=== PATIENT | female | born 1965 | race Caucasian/White ===

== ENCOUNTER 2020-06-27 23:57 | Emergency (ER) | payer SELFPAY ==
[2020-06-28 00:27] VITALS: BP 127/74; PULSE 91; RESP 16; TEMP 36.7; O2SAT 95; BMI 36.9
--- NOTE | 2020-06-28 00:35 | W.ED.DENTAL ---
HPI - Dental/Oral General: Chief complaint: Dental/Oral Stated complaint: BROKEN TOOTH Time Seen by Provider: 06/28/20 00:32 History of Present Illness: HPI Narrative: Patient is a 55-year-old female comes in ED with dental pain. Patient says that she has left lower dental pain due to a broken tooth. Patient says one of her teeth cracked couple weeks ago due to a retainer she wears. She says it started hurting approximately 2 days ago. She rates the pain a 10 out of 10. Dental pain is located at around tooth #21. Denies any fever, chills, nausea/vomiting or any facial swelling or trouble breathing. Patient says she is called multiple dentists and finally has an appointment set up in August. Dentist told patient to go to the ED and be put on antibiotics. Associated symptoms: Denies fever(s) or odynophagia Review of Systems Const: Denies: fever(s), chills or fatigue Eyes: Denies: change in vision or eye discomfort ENMT: Reports: dental pain; Denies: throat pain, odynophagia, nasal discharge or nasal congestion Card: Denies: chest pain, palpitations, edema, swelling of feet/ankles, dyspnea on exertion or orthopnea Resp: Denies: dyspnea, productive cough or non-productive cough GI: Denies: abdominal pain, nausea, vomiting, diarrhea, constipation or hematochezia : Denies: flank pain, dysuria or hematuria Musc: Denies: neck pain, back pain or extremity swelling Skin/Breast: Denies: rash or new lesions Neuro: Denies: headache(s), numbness in extremities or weakness in extremities [facility] ED PFSH: Medical History Anxiety disorder, unspecified Hypothyroid Major depressive disorder, recurrent Over weight Social History Smoking and tobacco status: current every day smoker cigarettes Years cigarettes smoked: 30 Quit status (tobacco): has tried quititng Number of times tried to quit tobacco: 1 Second hand smoke exposure: Yes Current gender identity: Female Physical Exam Const: COMMON NORMALS: no acute distress, patient oriented x3, healthy appearing and alert GENERAL APPEARANCE: cooperative and comfortable HENMT: COMMON NORMALS: normocephalic HEAD & SCALP: normocephalic MOUTH: Normal oral and palatal mucosa present TEETH & GINGIVA: Yes caries and Yes poor dentition THROAT: posterior oropharynx normal and uvula midline Neck/C-Spine: COMMON NORMALS: supple GENERAL: Yes normal visual inspection Resp: COMMON NORMALS: normal respiratory effort, No retractions, No use of accessory muscles and clear to auscultation bilaterally AUSCULTATION: clear to auscultation bilaterally Cardio: COMMON NORMALS: regular rate, regular rhythm, S1 normal heart sound present, S2 normal heart sound present, No gallops present (Cardio), No clicks present (Cardio), No murmurs present (Cardio) and Peripheral pulses 2+ throughout RATE: regular rate RHYTHM: regular rhythm HEART SOUNDS: S1 normal heart sound present and S2 normal heart sound present PERIPHERAL PULSES: Peripheral pulses 2+ throughout GI: COMMON NORMALS: Normal to inspection, nondistended, normoactive bowel sounds present, Soft to palpation, non-tender and no masses PALPATION: Yes Soft to palpation : COMMON NORMALS: Yes no CVA tenderness BLADDER/KIDNEY EXAM: Yes no CVA tenderness Back/Pelvis: COMMON NORMALS: no CVA tenderness Extremity: COMMON NORMALS: normal to inspection Neuro: COMMON NORMALS: patient oriented x3 SENSORIUM/ORIENTATION: Yes alert Skin: GENERAL SKIN EXAM: dry skin Course Vital Signs: Vital signs: Vital Signs Temperature 98.1 F 06/28/20 00:27 Pulse Rate 91 06/28/20 00:27 Respiratory Rate 16 06/28/20 00:27 Blood Pressure 127/74 06/28/20 00:27 Pulse Oximetry 95 06/28/20 00:27 MDM - Dental/Oral MDM Narrative: Medical decision making narrative: Patient is a 55-year-old female comes to the ED with dental pain. Denies any fever, chills, trouble breathing or nausea or vomiting. Patient has a appointment with her dentist in August and she was told to come to the ED to get put on antibiotic. Exam shows a patient poor dentition and multiple dental caries seen. Patient was diagnosed with dental pain and discharged home with a prescription for clindamycin and ibuprofen 800 mg tablets for pain. Return to ED precautions given. Patient understood and agreed with plan. Discharge Plan Discharge Patient Disposition: Home Clinical Impression: Pain, dental Condition: Stable Prescriptions: New clindamycin HCl 150 mg capsule 300 mg PO QID 7 Days Qty: 56 RF: 0 ibuprofen 800 mg tablet 800 mg PO Q8H PRN (Reason: pain) Qty: 30 RF: 0 No Action levothyroxine 150 mcg capsule 150 mcg PO DAILY RF: 0 biotin 1 mg capsule 1 mg PO DAILY RF: 0 duloxetine 30 mg capsule,delayed release(DR/EC) 30 mg PO DAILY Qty: 90 RF: 0 duloxetine [Cymbalta] 60 mg capsule,delayed release(DR/EC) 60 mg PO QAM Qty: 90 RF: 0 prazosin 1 mg capsule 1 mg PO .qhs 30 Days Qty: 90 RF: 0 buspirone 15 mg tablet 15 mg PO BID Qty: 135 RF: 0 lisinopril 5 mg tablet 5 mg PO DAILY RF: 0 oxybutynin chloride 5 mg tablet 5 mg PO BID RF: 0 metformin 500 mg tablet 500 mg PO BID RF: 0 Discharge Orders: Discharge ED (Routine); Ordered 06/28/20 Ordered By: Denis Alba Referrals: Kati Walker FNP [Primary Care Provider] - Discharge Diet: Regular Discharge Activity: Resume usual activity Patient Instructions: Dental Caries (ED), Toothache (ED) Activity Restrictions/Additional Instructions: Follow-up with dentist at your next scheduled appointment to address dental pain. Take medications as prescribed. Return to the ER or your medical provider if condition worsens. Please read and understand discharge instructions. If any questions, please ask. Coding Level of Care Code ED Inventory Manager for Anette Fwrosalia Exam Detailed
[2020-06-28] MEDS: HYDROcodone-acetaminophen 7.5-325 mg Tablet 1 TAB PO (00:56)
[2020-06-28] MEDS: clindamycin 150 mg Capsule 300 MG PO (00:59)
[2020-06-28 01:03] VITALS: RESP 16; TEMP 36.7; O2SAT 95
== END 2020-06-28 01:04 | disposition home or self-care (01) ==
PROVIDERS: Emergency Provider Physician Assistant; PCP Nurse Practitioner Family
DX: K08.89 Other specified disorders of teeth and supporting structures (principal); F17.210 Nicotine dependence, cigarettes, uncomplicated
CPT/HCPCS: 99283

== ENCOUNTER 2020-08-07 16:33 | Outpatient (CLI) | payer SELFPAY ==
--- NOTE | 2020-08-07 16:41 | XR_ITS ---
WS: [id number] Right knee, 4 views, 08/07/2020 Clinical Data: RT KNEE PAIN Comparison: None. Findings: No fractures or dislocations are seen. There is medial joint compartment narrowing. Joint cartilage c alcification is present in the lateral joint space. There are osteophytes of the medial femoral condy le and medial and lateral tibial plateaus. There are osteophytes of the posterior right patella.. The patella is intact. The soft tissues are unremarkable. XR/XR knee RT 4V [id number] Impression: Severe osteoarthritis of the right knee. Kellgren-Toby Classification: grade 4 (severe): large osteophytes, marked n arrowing of joint space, severe sclerosis and definite deformity of bone ends
== END 2020-08-07 16:34 | disposition home or self-care (01) ==
PROVIDERS: PCP Nurse Practitioner Family; Visit Provider Nurse Practitioner Family
DX: M25.561 Pain in right knee (principal); M17.11 Unilateral primary osteoarthritis, right knee; M25.761 Osteophyte, right knee
CPT/HCPCS: 73564

== ENCOUNTER → 2020-08-27 14:56 | Outpatient (BNVA) | payer SELFPAY | PROVIDERS: PCP Nurse Practitioner Family; Referring Provider Nurse Practitioner Family; Visit Provider Specialist | DX: G56.03 Carpal tunnel syndrome, bilateral upper limbs (principal); F17.210 Nicotine dependence, cigarettes, uncomplicated | CPT/HCPCS: 95910 ==

== ENCOUNTER → 2020-10-08 11:10 | Day surgery (SDC) | payer SELFPAY | PROVIDERS: PCP Nurse Practitioner Family; Visit Provider Orthopaedic Surgery | DX: Z01.818 Encounter for other preprocedural examination (principal) | CPT/HCPCS: 93005 ==

== ENCOUNTER 2020-10-14 14:06 | Observation (INO) | payer SELFPAY ==
[2020-10-08 10:51] VITALS: BMI 36.1
--- NOTE | 2020-10-08 11:10 | ECG_ITS ---
[facility] Test Date: 2020-10-08 Pat Name: Thelma Cleary Department: Room: Gender: Female [employer] Crafts[employer]: jd KAYB: 1965 Requested By: Brooklyn Oleary Order Number: [id number] Reading MD: JAEL FLORES Measurements Intervals [place] Rate: 70 P: 45 LA: 187 QRS: 26 QRSD: 97 T: 65 QT: 431 QTc: 467 Interpretive Statements SINUS RHYTHM No previous ECG available for comparison Electronically Signed On 10-08-2020 22:37:16 CDT by JAEL FLORES [id number]
[2020-10-14] VITALS (17 sets, daily range): BP systolic 90–125; BP diastolic 49–81; PULSE 71–89; RESP 16–18; TEMP 36.1–36.9; O2SAT 92–99; BMI 35.9
--- NOTE | 2020-10-14 10:36 | P.ANESASSM_ITS ---
Pre-Anesthetic Assessment Pre-Anesthetic Assessment: Height/Weight: Height 1.75 m Weight 111.13 kg Temp Pulse BP Pulse Ox 98.4 F 80 122/81 97 10/14/20 09:15 10/14/20 09:15 10/14/20 09:15 10/14/20 09:15 Proposed Procedure: Operation Date: 10/14/20 10:25 Proposed Procedures p right Total Knee Arthroplasty 80167 m17.11(Right) - Ron Aguilar MD Was Beta Mohsen taken within 24 hours: N/A Was Clonidine taken within 24 hours: N/A Last intake: Intake Last Liquid Date 10/14/20 Last Liquid Time 08:00 Last Solid Date 10/13/20 Last Solid Time 19:00 Social: Social History: Tobacco and No alcohol Exam: Pre-Anes Outpt Exam: alert, oriented x 3 and regular rate & rhythm Airway: Submandibular: WNL Cervical ROM: WNL MP: 2 Dentition: False Pulmonary: Pulmonary: COPD CV/HEM: CV/HEM: HTN Metabolic: Metabolic: DM, Hyperlipidemia, Morbid obesity and Thyroid Musc/skel: Musc/skel: OA/DJD Neuropsych: Neuropsych: Anxiety and Depression Anesthetic Plan: ASA status: 3 Anesthesia: Regional (specify below) (SAB with adductor blk) Risk of > 500 ml blood loss (7ml/kg in children): No PFSH Anesthesia PFSH: Medical History Anxiety disorder, unspecified Hypothyroid Major depressive disorder, recurrent Over weight Social History Smoking and tobacco status: current every day smoker cigarettes Years cigarett es smoked: 30 Quit status (tobacco): has tried quititng Number of times tried to quit tobacco: 1 Second hand smoke exposure: Yes Current gender identity: Female Data Anesthesia Cardiac Studies: No Data to Display
[2020-10-14 11:03] LABS: Glucose Point of Care 116 mg/dL (70-110)
--- NOTE | 2020-10-14 11:13 | P.HP_ITS ---
Same Day Surgery H&P Indication for Procedure/HPI DATE OF PROCEDURE: October 14, 2020 CHIEF COMPLAINT/INDICATIONFOR SURGICAL PROCEDURE: Right knee pain here for elective right total knee arthroplasty unresponsive to conservative measures secondary to osteoarthritis. PREOP DIAGNOSIS: Osteoarthritis right knee PLANNED PROCEDRUE: Operation Date: 10/14/20 10:25 Proposed Procedures p right Total Knee Arthroplasty 11769 m17.11(Right) - Ron Aguilar MD Medications/Allergies* Home Medications Medication Instructions Recorded Confirmed Type lisinopril 5 mg tablet 5 mg PO DAILY 11/21/19 10/14/20 History oxybutynin chloride 5 mg tablet 5 mg PO BID tab 11/21/19 10/14/20 History biotin 1 mg capsule 1 mg PO DAILY 01/01/20 10/14/20 History gabapentin 100 mg capsule 100 mg PO TID 08/08/20 10/14/20 History ibuprofen 800 mg tablet 800 mg PO Q8H PRN tab 08/08/20 09/23/20 History levothyroxine 125 mcg tablet 125 mcg PO DAILY 08/08/20 10/14/20 History meloxicam 15 mg tablet 15 mg PO DAILY 08/08/20 10/14/20 History metformin 500 mg tablet 1,000 mg PO BID tab 08/08/20 10/14/20 History simvastatin 40 mg tablet 40 mg PO .HS tab 08/08/20 10/14/20 History Allergies/Adverse Reactions Allergy/AdvReac Type Severity Reaction Status Date / Time Penicillins Allergy Severe swells Verified 09/23/20 09:19 morphine Allergy ALGY-Hives Verified 10/14/20 09:19 Pertinent History/Comorbid Conditions* Medical History (Updated 08/27/20 @ 17:13 by Bhavya Ledesma MD) Anxiety disorder, unspecified Hypothyroid Major depressive disorder, recurrent Over weight Social History Smoking and tobacco status: current every day smoker cigarettes Years cigarettes smoked: 30 Quit status (tobacco): has tried quititng Number of times tried to quit tobacco: 1 Second hand smoke exposure: Yes Current gender identity: Female Pertinent Exam Findings alert, oriented x 3, clear to auscultation bilaterally, regular rate & rhythm and operative site marked Recommendations Surgery/Procedure today Coding Level of Care Code Acute Medical Registrar for Anette Raygoza
[2020-10-14] MEDS: oxyCODONE 20 mg ER (12 HR) Tablet PO (11:45)
[2020-10-14] MEDS: CELEcoxib 200 mg Capsule PO ×3 (11:46→22:20)
[2020-10-14] MEDS: acetaminophen 500 mg Tablet 1000 MG PO ×2 (11:46→19:49)
[2020-10-14] MEDS: sodium chloride 0.9% 1,000 ML 30 ML IV (11:46)
[2020-10-14] MEDS: ketorolac 30 mg/mL INJ IM (12:50)
[2020-10-14] MEDS: EPINEPHrine 1 mg/mL INJ XX (12:51)
[2020-10-14] MEDS: tranexamic acid 1,000 mg/10mL SDV 1000 MG IRRIGATION (12:52)
--- NOTE | 2020-10-14 12:53 | ANES.PROC ---
Anesthesia Procedures Procedure/Date: 10/14/20 Nerve Block ^: Nerve Block 1: Main Anesthesia: spinal anesthesia block Time Out Performed: Yes Consent: requested by attending/covering physician, from patient, risks and benefits reviewed and patient agrees to proceed Nerve block location: adductor canal (right) Anesthesia monitors applied: pulse oximetry, EKG, BP cuff and oxygen Anesthetic Used: ropivicaine 0.5% Amount of anesthesia used (mL): 20 Nerve Stimulator Used?: No Interscalene/Femoral BLK: 4 stimuplex 21 g needle used for position and inplane approach and visualize local anesthetic spread Injection: neg aspiration of heme Patient Tolerated Procedure: well Complications: none
--- NOTE | 2020-10-14 14:11 | XRR_ITS ---
PROCEDURE INFORMATION: Exam: XR Right Knee Exam date and time: 10/14/2020 2:11 PM Age: 55 years old Clinical indication: Condition or disease; Joint replacement status; Knee; Right; Prior surgery; Surgery date: Post-operative (0-2 days); Surgery type: Tka; Patient HX: Post op; Additional info: Right total knee arthroplasty TECHNIQUE: Imaging protocol: XR Right knee. Views: 1 or 2 views. COMPARISON: CR XR knee RT 4V [id number] 08/07/2020 4:50 PM FINDINGS: Postoperative changes of recent right knee arthroplasty are noted, which appear in good alignment. Soft tissue swelling and subcutaneous air are present in the anterior knee. XR/XR knee RT 1-2V [id number] IMPRESSION: Recent right knee arthroplasty.
--- NOTE | 2020-10-14 14:17 | PM.OP ---
Operative Report Date of procedure: October 14, 2020 Pre-op Diagnosis: Osteoarthritis right knee Post-op diagnosis: same Post-op Findings: Tricompartmental osteoarthritis right knee Implants: [place] total knee arthroplasty components were used includin) Size 5 triathalon cruciate retaining femoral component 2) Size 4 Tritanium tibial component 3) 29 mm /9 mm thickness Tritanium asymetric patella 4) Size 4/9 mm thickness CR tibial bearing insert Pathology: none sent Surgeon: Ron Aguilar Anesthesia: Nerve Block (Spinal, adductor canal block) Estimated blood loss (mL): 100 Findings: The patient had tricompartmental osteoarthritis. With varus alignment and large posterior osteophytes. Condition: stable Disposition: PACU Procedure: The patient was taken to the operating room. Patient was given 1 g of tranexamic acid . The above anesthesia provided by the anesthesia service. A timeout was performed. The patient was prepped and draped in the usual fashion with the lower extremity exposed. A anterior incision was made, midline, from a point proximal to the patella to the distal tibial tubercle. The knee was entered through a medial parapatellar approach. The patella could be displaced laterally and the knee flexed. The patellar fat pad was resected to provide better visibility. Retractors were placed medially and laterally adjacent to the tibial plateau. The femoral canal was drilled in line with the longitudinal axis of the femur. Intramedullary femoral guide for used to make a distal femoral cut in 5 degrees of valgus, resecting 8 mm from the more prominent condyle. Next the extra medullary tibial guide was placed in alignment with the longitudinal axis of the tibia. The cutting guides were set to remove just over 9 mm from the high tibial plateau. The proximal tibia was then cut. The femoral measuring guide was then placed over the distal femur. Rotation was verified checking the relationship of the guide to the condyle and the trochlear groove. The femur was measured and cut for the desired femoral component. The desired tibial baseplate was then chosen. A trial reduction with the femur tibial baseplate and polyethylene was done, assuring that the knee was stable throughout full motion. Ligament balancing a release of the deep medial collateral ligament and removal of medial and posterior osteophytes. Osteotome was used to remove posterior osteophytes from the medial condyles and a rongeur to remove medial osteophytes from the tibia.The tibia was prepared for the tibial baseplate. Patellar thickness was then measured. The patella was cut removing articular cartilage and prepared for appropriate size patellar button. surfaces were cleaned with a gentamicin/tranexamic acid solution. The femur tibia and patella were then press-fit into place. The posterior capsule and collateral ligaments were then injected with a solution of 100 mL of 0.2% ropivacaine, 1 mL of a 1:1000 epinephrine solution, and 30 mg of Toradol. Final polyethylene component was then snapped into place into the tibia. The tourniquet was deflated. The tranxanemic acid was left contact with the knee for 5 minutes before the knee was irrigated with saline. The extensor retinaculum was closed with a running 1 Stratafix.. The subcutaneous tissues were closed with 2-0 Vicryl and the skin was closed with a running 3-0 Stratafix. The wound was covered with a Dermabond Prinio dressing. It was covered with 4xrs and a compressive Tubigauae was applied. The patient was taken to recovery room in stable condition.
--- NOTE | 2020-10-14 14:32 | ANE.PACU2 ---
Inpatient post-anesthesia follow up: Airway intact: Yes Vital signs: Temperature 97 F Pulse Rate 80 Respiratory Rate 17 Blood Pressure 103/67 Pulse Oximetry 93 Oxygen Delivery Me thod Room Air Oxygen Flow Rate Fraction of Inspir ed Oxygen Hydration adequate: Yes Nausea and vomiting: No Pain level: 2 Mental status: Baseline
[2020-10-14 17:12] LABS: Glucose Point of Care 171 mg/dL (70-110)
[2020-10-14] MEDS: metformin 500 mg Tablet 1000 MG PO (17:41)
[2020-10-14] MEDS: gabapentin 300 mg Capsule PO (17:41)
[2020-10-14] MEDS: sennosides-docusate Tablet 2 TAB PO (17:41)
[2020-10-14] MEDS: oxybutynin 5 mg Tablet PO (17:42)
[2020-10-14] MEDS: sodium chloride 0.9% 1,000 ML 100 ML IV (17:50)
[2020-10-14] MEDS: oxyCODONE 5 mg IR Tab/Cap PO (18:38)
[2020-10-14] MEDS: atorvastatin 40 mg Tablet 20 MG PO (20:01)
[2020-10-14] MEDS: prazosin 1 mg Capsule 2 MG PO (20:06)
[2020-10-14] MEDS: acetaminophen 1,000 MG/100 ML PIGGYBACK 400 MG IV (21:27)
[2020-10-14 21:43] LABS: Glucose Point of Care 161 mg/dL (70-110)
[2020-10-15 00:06] VITALS: BP 104/67; PULSE 75; RESP 16; TEMP 36.7; O2SAT 96
--- NOTE | 2020-10-15 00:11 | PC.NURSE ---
Addendum entered by Eusebia Stephenson RN 10/15/20 00:11: Entered in error Original Note: Shift Note Frequent safety and comfort rounds continue. Orders and/or nursing care completed as indicated. Patient monitored for response to intervention and treatment(s). Education provided includes[]. Patient and/or access service representative [ResponseToTeaching]. Will continue to monitor.
[2020-10-15 00:25] VITALS: RESP 18
[2020-10-15] MEDS: oxyCODONE 5 mg IR Tab/Cap PO ×2 (00:25→05:20)
[2020-10-15 03:37] LABS: Hemoglobin 11.4 g/dL (11.5-15.3)
[2020-10-15 04:09] VITALS: BP 98/65; PULSE 94; RESP 16; TEMP 36.7; O2SAT 95
[2020-10-15 05:20] VITALS: RESP 18
[2020-10-15] MEDS: duloxetine 60 mg Capsule PO (06:18)
[2020-10-15 06:34] LABS: Glucose Point of Care 121 mg/dL (70-110)
[2020-10-15 07:46] VITALS: BP 121/72; PULSE 80; RESP 18; TEMP 36.8; O2SAT 95
[2020-10-15] MEDS: sennosides-docusate Tablet 2 TAB PO (08:11)
[2020-10-15] MEDS: metformin 500 mg Tablet 1000 MG PO (08:11)
[2020-10-15] MEDS: aspirin 325 mg EC Tablet PO (08:11)
[2020-10-15] MEDS: levothyroxine 125 mcg Tablet PO (08:11)
[2020-10-15] MEDS: oxybutynin 5 mg Tablet PO (08:11)
[2020-10-15] MEDS: lisinopril 5 mg Tablet PO (08:11)
[2020-10-15] MEDS: citalopram 20 mg Tablet PO (08:11)
[2020-10-15] MEDS: gabapentin 300 mg Capsule PO (08:11)
--- NOTE | 2020-10-15 08:14 | PM.DCS ---
Discharge Providers Date of Admission: 10/14/20 14:06 Date of Discharge: October 15, 2020 Attending Provider at Admission: Ron Aguilar MD Attending Provider at Discharge: Ron Aguilar MD Primary Care Provider: Kati Walker Diagnoses at Discharge Discharge Diagnosis (1) Status post right knee replacement: Status: Acute (2) Osteoarthritis of right knee: Status: Acute Reason for Visit Reason for Visit: right total knee arthroplasty 97187 Hospital Course Hospital Course The patient tolerated surgery well. They remained hemodynamically stable. They was begun on aspirin and sequential compression devices for DVT prophylaxis. The patient was mobilized with therapy beginning the day of surgery and by the first postoperative day independent with the walker. As the pain was adequately controlled and they were fully mobile they were discharged home. Physical Exam Narrative: EXAM NARRATIVE: On the day of discharge his knee incision was clean. They had no drainage. There is minimal swelling in the thigh and knee and the calf. No distal neurovascular deficits were noted Discharge Data Data Completed and Pending: Completed Studies During Hospitalization Category Date Time Status XR knee RT 1-2V 7 3560 Routine Exams 10/14/20 14:11 Completed Labs from last 24 hours 10/15/20 10/15/20 10/14/20 06:31 03:23 21:28 Hgb 11.4 L POC Glucose 121 H 161 H 10/14/20 10/14/20 16:58 10:56 Hgb POC Glucose 171 H 116 H Vitals: Last Vital Signs Temp 98.3 F 10/15/20 07:46 Pulse 80 10/15/20 07:46 Resp 18 10/15/20 07:46 BP 121/72 10/15/20 07:46 Pulse Ox 95 10/15/20 07:46 Discharge Plan Discharge Patient Disposition: Home Condition: Stable Prescriptions: New hydrocodone-acetaminophen 7.5-325 mg tablet 1 tab PO Q6H PRN (Reason: pain) 7 Days Qty: 30 RF: 0 aspirin 325 mg Tablet,Delayed Release (Dr/Ec) 325 mg PO DAILY 30 Days Qty: 30 RF: 0 gabapentin 300 mg Capsule 300 mg PO BID 7 Days Qty: 14 RF: 0 acetaminophen 500 mg Tablet 1,000 mg PO Q8H 14 Days Qty: 84 RF: 0 celecoxib 200 mg Capsule 200 mg PO Q12H 14 Days Qty: 28 RF: 0 Continued biotin 1 mg capsule 1 mg PO DAILY RF: 0 mupirocin 2 % ointment 1 applic topical BID Qty: 22 RF: 0 tramadol 50 mg tablet 50 mg PO Q6H PRN (Reason: pain) Qty: 30 RF: 0 lisinopril 5 mg tablet 5 mg PO DAILY RF: 0 oxybutynin chloride 5 mg tablet 5 mg PO BID RF: 0 metformin 500 mg tablet 1,000 mg PO BID RF: 0 prazosin 2 mg capsule 2 mg PO .q hs Qty: 30 RF: 1 duloxetine [Cymbalta] 60 mg capsule,delayed release(DR/EC) 60 mg PO QAM Qty: 90 RF: 0 citalopram 20 mg tablet 20 mg PO DAILY Qty: 30 RF: 1 ibuprofen 800 mg tablet 800 mg PO Q8H PRN (Reason: pain) RF: 0 levothyroxine 125 mcg tablet 125 mcg PO DAILY RF: 0 gabapentin 100 mg capsule 100 mg PO TID RF: 0 simvastatin 40 mg tablet 40 mg PO .HS RF: 0 Discontinued meloxicam 15 mg tablet 15 mg PO DAILY RF: 0 Discharge Orders: Discharge Order (Routine); Ordered 10/15/20 Ordered By: Ron Aguilar Other Ambulatory Orders: DME: [facility] (Order) Location: None Selected Ordered By: Ron Aguilar Referrals: Ron Aguilar MD [Physician] - 1-3 days (Wednesday) Discharge Diet: Advance as tolerated Discharge Activity: Limit activity as instructed Patient Instructions: Opioid Safety Activity Restrictions/Additional Instructions: Okay to shower Keep Tubigauze sleeve in place for swelling. Okay to remove for hygiene. Apply FirstIce up to 20 min/hr for pain and swelling Take Celebrex twice a day for the next 15 days for pain , discontinue other anti-inflammatories Take Neurontin twice a day for 7 days then decrease to previous dosage Take Tylenol 500mg (1-2 tabs) as needed 3 times a day for mild pain take hydrocodone for breakthrough pain. If taking hydrocodone hold Tylenol Exercises per physical therapy. May weight-bear as tolerated on total knee arthroplasty Discharge Attestations Time Spent in Discharge Care*: other Quality Metrics Clinical Quality Measures During this hospital stay, did patient experience: None Coding Level of Care Code Acute g FW VT note Diagnoses Status post right knee replacement Z96.651 Osteoarthritis of right knee M17.11
--- NOTE | 2020-10-15 08:18 | PC.NURSE ---
Shift Note Frequent safety and comfort rounds continue. Orders and/or nursing care completed as indicated. Patient monitored for response to intervention and treatment(s). Education provided includesoxygen safety and IV pump and medication. Patient and/or mechanical service representative understood teaching. Will continue to monitor.
[2020-10-15] MEDS: CELEcoxib 200 mg Capsule PO (10:37)
[2020-10-15] MEDS: acetaminophen 500 mg Tablet 1000 MG PO (10:37)
--- NOTE | 2020-10-15 11:05 | PC.NURSE ---
Faxed [facility] to [facility]
--- NOTE | 2020-10-15 11:05 | PC.NURSE ---
Patient given discharge instructions and verbalized understanding of instructions. patient taken to private vehicle via wheelchair by staff.
[2020-10-15 11:06] VITALS: BP 121/72; PULSE 80; RESP 18; TEMP 36.8; O2SAT 95
--- NOTE | 2020-10-15 13:26 | PC.OT ---
PATIENT DISCHARGED BEFORE EVALUATION COULD BE COMPLETED.
--- NOTE | 2020-10-18 10:43 | PC.SOCIAL ---
hospital follow up call made to patient. patient is seeing Dr. Aguilar today. Home health has been to see patient twice this week and will see patient tid starting next week. patient has been taking hydrocodone for pain with improved pain, along with neurotin, tylenol, celebrex. patient using first ice.
--- NOTE | 2020-10-21 16:38 | PC.RESP ---
SMOKING CESSATION INFORMATION SENT TO PATIENT.
== END 2020-10-15 11:07 | disposition home or self-care (01) ==
LOC: MEDSURG 14:06
PROVIDERS: Admitting Provider Orthopaedic Surgery; PCP Nurse Practitioner Family; Visit Provider Orthopaedic Surgery
PROC: (CPT 27447; principal; 2020-10-14 10:25)
DX: M17.11 Unilateral primary osteoarthritis, right knee (principal); J44.9 Chronic obstructive pulmonary disease, unspecified; I10 Essential (primary) hypertension; E11.9 Type 2 diabetes mellitus without complications; E78.5 Hyperlipidemia, unspecified; E66.01 Morbid (severe) obesity due to excess calories; Z68.35 Body mass index [BMI] 35.0-35.9, adult; F41.9 Anxiety disorder, unspecified; F33.9 Major depressive disorder, recurrent, unspecified; F17.210 Nicotine dependence, cigarettes, uncomplicated
CPT/HCPCS: 27447; 36415; 36416; 64447; 73560; 76942; 82962; 85018; 87635; 96372; 97110; 97116; 97161; C1776; G0378; J0171; J0690; J1580; J1815; J1885; J2704; J2795; J7030

== ENCOUNTER → 2020-11-12 11:25 | Outpatient (BNVA) | payer SELFPAY | PROVIDERS: PCP Nurse Practitioner Family; Visit Provider Orthopaedic Surgery | DX: Z96.651 Presence of right artificial knee joint (principal) | CPT/HCPCS: 73560; 73565 ==

== ENCOUNTER 2020-11-18 13:32 | Outpatient (RCR) | payer SELFPAY | END 2020-12-05 23:59 | disposition home or self-care (01) | LOC: SPT 13:32 | PROVIDERS: PCP Nurse Practitioner Family; Referring Provider Orthopaedic Surgery; Visit Provider Orthopaedic Surgery | DX: Z47.1 Aftercare following joint replacement surgery (principal); Z96.651 Presence of right artificial knee joint | CPT/HCPCS: 97110; 97161 ==

== ENCOUNTER 2021-07-17 10:36 | Day surgery (SDC) | payer SELFPAY ==
[2021-07-16 12:42] VITALS: BMI 35.9
[2021-07-17] VITALS (7 sets, daily range): BP systolic 113–159; BP diastolic 73–91; PULSE 65–83; RESP 17–18; TEMP 36.1–36.6; O2SAT 94–100
--- NOTE | 2021-07-17 10:56 | ANES.PREANE2 ---
Pre-Anesthetic Assessment Height/Weight: Height 1.75 m Weight 110.223 kg Temp Pulse Resp BP Pulse Ox 97.8 F 77 17 113/73 96 07/17/21 10:53 07/17/21 10:53 07/17/21 10:53 07/17/21 10:53 07/17/21 10:53 Preop Diagnosis: BilateralCarpal tunnel syndrome Operation Date: 07/17/21 11:55 Proposed Procedures p Bilateral Carpal Tunnel Release 95853/G56.03(Bilateral) - Ron Aguilar MD Familial anesthetic complications: None Was Beta Mohsen taken within 24 hours: N/A Was Clonidine taken within 24 hours: N/A Social Tobacco and No tobacco Exam alert, oriented x 3 and regular rate & rhythm b/l diminished breath sounds Airway Submandibular: within normal limits Cervical ROM: within normal limits Mallampati: Class I Dentition: false History/ROS No significant complaints Pulmonary None reported CV/HEM Hypertension METS > 4 None reported Hepatic None reported GI None reported Metabolic Thyroid Disease (hypothyroid ) [facility] [place] reported Neuropsych Anxiety, Depression and Neuropathy (Carpal tunnel ) PTSD Hx of concussion Anesthetic Plan ASA status: 3 (56 years old female smoker with hx of hypothyroid, depression, chronic PTSD. ) Anesthesia: Anesthesia Evaluation and General Other: We discussed risk and benefits of general anesthesia including PONV, sore throat (sometimes severe), corneal abrasion, positioning and peripheral nerve injuries, life threatening allergic reaction, post operative ICU admission requiring prolonged intubation, stroke, heart attack, , and rare incidences of recall. Patient consents to proceed with general anesthesia. Risk of > 500 ml blood loss (7ml/kg in children): No Medications/Allergies Home Medications Medication Instructions Recorded Confirmed Last Taken Type lisinopril 5 mg tablet 5 mg PO QAM 11/21/19 07/17/21 07/16/21 08:00 History metformin 500 mg tablet 1,000 mg PO DAILY tab 08/08/20 07/17/21 07/16/21 08:00 History simvastatin 40 mg tablet 40 mg PO BEDTIME tab 08/08/20 07/17/21 07/16/21 20:00 History hydrochlorothiazide 12.5 mg capsule 12.5 mg PO QAM 10/15/20 07/17/21 07/16/21 08:00 History multivit,Ca,min-iron gluconat 1 1 tab PO DAILY 10/15/20 07/17/21 07/16/21 08:00 History mg-FA 66.7 mcg-biotin 1,000 mcg tablet (Hair,Skin and Nails) ascorbic acid (vitamin C) 250 mg 250 mg PO DAILY 11/04/20 07/17/21 07/16/21 20:00 History tablet cholecalciferol (vitamin D3) 10 10 mcg PO DAILY 11/04/20 07/17/21 07/16/21 08:00 History mcg (400 unit) capsule aspirin 81 mg capsule 81 mg PO DAILY 01/23/21 07/17/21 07/16/21 08:00 History levothyroxine 137 mcg capsule 137 mcg PO DAILY 01/23/21 07/17/21 07/16/21 08:00 History fenofibrate 50 mg capsule 48 mg PO DAILY cap 02/27/21 07/17/21 07/16/21 20:00 History gabapentin 100 mg capsule 100 mg PO BID cap 02/27/21 07/17/21 07/16/21 20:00 History meloxicam 15 mg tablet 15 mg PO DAILY 02/27/21 07/17/21 07/16/21 08:00 History duloxetine 30 mg capsule,delayed 30 mg PO DAILY #90 cap 04/28/21 07/17/21 07/16/21 08:00 Rx release duloxetine 60 mg capsule,delayed 60 mg PO QAM #90 cap 04/28/21 07/17/21 07/16/21 08:00 Rx release (Cymbalta) prazosin 2 mg capsule 2 mg PO .q hs #90 cap 04/28/21 07/17/21 07/16/21 20:00 Rx hydrocodone 5 mg-acetaminophen 325 1 tab PO Q4H #30 tab 07/17/21 Unknown Rx mg tablet Allergies Allergy/AdvReac Type Severity Reaction Status Date / Time Penicillins Allergy Severe swells Verified 07/17/21 10:54 morphine Allergy ALGY-Hives Verified 07/17/21 10:54 PFSH Anesthesia Medical History Anxiety disorder, unspecified Hypothyroid Major depressive disorder, recurrent Major depressive disorder, recurrent, in partial remission Over weight Psychiatric care Social History Smoking and tobacco status: never smoked Quit status (tobacco): has tried quititng Number of times tried to quit tobacco: 1 Second hand smoke exposure: Yes Current gender identity: Female Data Anesthesia Cardiac Studies: No Data to Display
[2021-07-17 11:31] LABS: Glucose Point of Care 119 mg/dL (70-110)
[2021-07-17] MEDS: sodium chloride 0.9% 1,000 ML 30 ML IV (11:31)
--- NOTE | 2021-07-17 13:43 | PM.OP ---
Operative Report Date of procedure: July 17, 2021 Pre-op diagnosis: Preop Diagnosis Left Carpal tunnel syndrome Post-op diagnosis: same Post-op diagnosis: Same Procedure done: Bilateral carpal tunnel release Pathology: none sent Surgeon: Ron Aguilar Anesthesia: General and Nerve Block ([place] block) Estimated blood loss (mL): 5 Findings: No masses or space-occupying lesions were seen within the carpal tunnel Condition: stable Disposition: PACU Procedure: Patient was taken to the operating room and anesthesia provided by the anesthesia service. She was prepped and draped with the arm exposed. A timeout was performed. A 3 cm long incision was made in line with the fourth ray from the distal edge of the carpal tunnel extending proximally. The subcutaneous fat and palmar fascia was divided with a scalpel blade. Under loupe magnification the ulnar neurovascular bundle was identified distally. A hemostat could be passed under the transverse carpal ligament allowing the distal 25% to be divided. A slotted guide was then passed beneath the transverse carpal ligament and the middle 50% divided. Blunt scissors were then passed over the guide freeing the proximal ligament. The tourniquet was deflated. Hemostasis provided with electrocautery. Wound edges were infiltrated with 10 cc of a half percent Marcaine solution. Skin edges were reapproximated with 3-0 Prolene. Sterile dressings were applied. Attention was then focused on the right carpal tunnel
--- NOTE | 2021-07-17 13:44 | PM.OP ---
Operative Report Date of procedure: July 17, 2021 Pre-op diagnosis: Preop Diagnosis Bilateral Carpal tunnel syndrome Preop Diagnosis right carpal tunnel syndrome Post-op diagnosis: same Post-op diagnosis: Same Procedure done: Right carpal tunnel release Pathology: none sent Surgeon: Ron Aguilar Anesthesia: General and Nerve Block ([place] block) Estimated blood loss (mL): 2 Tourniquet time (min): 3 Findings: No masses or space-occupying lesion seen in the right carpal tunnel Condition: stable Disposition: PACU Procedure: After completion of the left carpal tunnel attention was then focused on the right. She was prepped and draped with the arm exposed. A 3 cm long incision was made in line with the fourth ray from the distal edge of the carpal tunnel extending proximally. The subcutaneous fat and palmar fascia was divided with a scalpel blade. Under loupe magnification the ulnar neurovascular bundle was identified distally. A hemostat could be passed under the transverse carpal ligament allowing the distal 25% to be divided. A slotted guide was then passed beneath the transverse carpal ligament and the middle 50% divided. Blunt scissors were then passed over the guide freeing the proximal ligament. The tourniquet was deflated. Hemostasis provided with electrocautery. Wound edges were infiltrated with 10 cc of a half percent Marcaine solution. Skin edges were reapproximated with 3-0 Prolene. Sterile dressings were applied. The patient was taken to the recovery room in stable condition
[2021-07-17] MEDS: HYDROcodone-acetaminophen 5-325 mg Tablet 1 TAB PO (14:51)
--- NOTE | 2021-07-17 14:51 | ANE.PACU2 ---
Inpatient post-anesthesia follow up: Airway intact: Yes Vital signs: Temperature 97.5 F Pulse Rate 78 Respiratory Rate 18 Blood Pressure 141/91 Pulse Oximetry 96 Oxygen Delivery Me thod Room Air Oxygen Flow Rate 5 Fraction of Inspir ed Oxygen Hydration adequate: Yes Nausea and vomiting: No Pain level: 3 Mental status: Baseline
--- NOTE | 2021-07-25 10:43 | W.PM.OPSUD ---
Surgery/Procedure H&P Update DATE OF PROCEDURE: July 17, 2021 DATE H&P PERFORMED: 07/09/21 H&P UPDATE INFORMATION: I have reviewed H&P completed within last 30 days PREOP DIAGNOSIS: BilateralCarpal tunnel syndrome PLANNED PROCEDURE: Operation Date: 07/17/21 11:55 Proposed Procedures p Bilateral Carpal Tunnel Release 00255/G56.03(Bilateral) - Ron Aguilar MD
== END 2021-07-17 15:01 | disposition home or self-care (01) ==
PROVIDERS: PCP Nurse Practitioner Family; Visit Provider Orthopaedic Surgery
PROC: (CPT 64721; principal; 2021-07-17 11:45)
DX: G56.01 Carpal tunnel syndrome, right upper limb (principal); I10 Essential (primary) hypertension; E03.9 Hypothyroidism, unspecified; Z79.82 Long term (current) use of aspirin
CPT/HCPCS: 64721; 36415; 36416; 82962; J0690; J1100; J2405; J2704; J3010; J3490; J7030

== ENCOUNTER 2021-07-22 11:03 | Outpatient (CLI) | payer SELFPAY | END 2021-07-22 11:04 | disposition home or self-care (01) | LOC: SPT 11:04 | PROVIDERS: PCP Nurse Practitioner Family; Visit Provider Nurse Practitioner Family | DX: Z47.1 Aftercare following joint replacement surgery (principal); Z96.651 Presence of right artificial knee joint | CPT/HCPCS: 97760; L3908 ==

== ENCOUNTER 2024-12-26 12:52 | Emergency (ER) | payer SELFPAY ==
--- NOTE | 2024-12-26 12:55 | XRR_ITS ---
PROCEDURE INFORMATION: Exam: XR Left Shoulder Exam date and time: 12/26/2024 1:01 PM Age: 59 years old Clinical indication: Injury or trauma; Fall; Blunt trauma (contusions or hematomas); Shoulder; Left; Additional info: Fall/injury TECHNIQUE: Imaging protocol: Radiologic exam of the left shoulder. Views: 2 or more views. COMPARISON: No relevant prior studies available. FINDINGS: Bones/joints: No fracture or dislocation is seen about the left shoulder. No abnormal widening or separation of the left AC joint. No abnormal soft tissue calcification is seen about the shoulder joint. Adjacent osseous structures show no acute abnormality. Soft tissues: Unremarkable. XR/XR shoulder LT min 2V* [id number] IMPRESSION: No acute findings.
[2024-12-26 12:57] VITALS: BP 121/74; PULSE 82; TEMP 36.5; O2SAT 95; BMI 29.8
--- NOTE | 2024-12-26 13:03 | W.ED.EXTPRO ---
HPI - Extremity Problem General: Chief complaint: Extremity Injury, Upper Stated complaint: fell L shoulder pain Time Seen by Provider: 12/26/24 12:57 History of Present Illness: 59-year-old female presents emergency room left shoulder pain. She had fallen she tripped and landed on her left shoulder did not get her arm out to break her fall. There is no loss consciousness she was carrying a cup of coffee states she did not spill any of her coffee. Denies any other injuries. Associated symptoms: Deny chest pain, fever(s) or rash Related Data Home Medications ?Medication ?Instructions ?Recorded ?Confirmed multivit,Ca,min-iron gluconat 1 1 tab PO DAILY 10/15/20 09/19/24 mg-FA 66.7 mcg-biotin 1,000 mcg tablet (Hair,Skin and Nails) ascorbic acid (vitamin C) 250 mg 250 mg PO DAILY 11/04/20 09/19/24 tablet gabapentin 300 mg capsule 600 mg PO BID 10/13/21 09/19/24 semaglutide 2 mg/dose (8 mg/3 mL) mg SUBCUT 04/05/23 09/19/24 subcutaneous pen injector (Ozempic) levothyroxine 125 mcg tablet 125 mcg PO DAILY 02/15/24 09/19/24 lisinopril 5 mg tablet 2.5 mg PO QAM 02/15/24 09/19/24 ropinirole 0.5 mg tablet 0.5 mg PO DAILY 09/19/24 09/19/24 Previous Rx's ?Medication ?Instructions ?Recorded duloxetine 60 mg capsule,delayed 60 mg PO BID #180 caps 09/19/24 release diclofenac sodium 75 mg 75 mg PO Q12H PRN pain #20 tabs 12/26/24 tablet,delayed release Allergies Allergy/AdvReac Type Severity Reaction Status Date / Time Penicillins Allergy Severe swells Verified 12/26/24 13:01 morphine Allergy ALGY-Hives Verified 12/26/24 13:01 Review of Systems Const: Denies: fever(s) or chills Card: Denies: chest pain Resp: Denies: dyspnea GI: Denies: abdominal pain : Denies: dysuria, urinary frequency or urinary urgency Musc: Denies: neck pain or back pain Skin/Breast: Denies: rash PFSH ED PFSH: Medical History (Updated 12/26/24 @ 13:20 by Dave Marie, DO) Major depressive disorder, recurrent, in full remission Major depressive disorder, recurrent, in partial remission Psychiatric care Major depressive disorder, recurrent Other mixed anxiety disorders Hypothyroid Over weight Social History Smoking and tobacco/nicotine status: current every day tobacco/nicotine user cigarettes Packs smoked per day: 1.5 Years cigarettes smoked: 30 Quit status (tobacco/nicotine): has tried quititng Number of times tried to quit tobacco: 1 Second hand smoke exposure: Yes Current gender identity: Female Physical Exam Const: COMMON NORMALS: no acute distress GENERAL APPEARANCE: cooperative and comfortable ORIENTATION/CONSCIOUSNESS: Yes awake, Yes oriented to person, Yes oriented to place and Yes oriented to time HENMT: COMMON NORMALS: normocephalic, atraumatic and hearing grossly normal bilaterally HEAD & SCALP: normocephalic and atraumatic Resp: COMMON NORMALS: normal respiratory effort, No retractions, No use of accessory muscles and clear to auscultation bilaterally AUSCULTATION: clear to auscultation bilaterally Cardio: COMMON NORMALS: regular rate, regular rhythm and No murmurs present (Cardio) RATE: regular rate RHYTHM: regular rhythm GI: COMMON NORMALS: Soft to palpation and No hepatosplenomegaly present AUSCULTATION: Yes normoactive bowel sounds PALPATION: Yes Soft to palpation, No Tenderness to palpation present (GI), No Guarding due to palpation present (GI) and Yes No hepatosplenomegaly present Extremity: COMMON NORMALS: normal to inspection, capillary refill normal, no clubbing, cyanosis or edema, no calf tenderness and no pedal edema Neuro: SENSORIUM/ORIENTATION: Yes oriented to person, Yes oriented to place and Yes oriented to time Skin: COMMON NORMALS: no rashes or lesions noted GENERAL SKIN EXAM: no rashes or lesions noted Course Vital Signs: Vital signs: Vital Signs Temperature 97.7 F 12/26/24 12:57 Pulse Rate 87 12/26/24 13:43 Blood Pressure 146/60 12/26/24 13:43 Pulse Oximetry 97 12/26/24 13:43 Oxygen Delivery Me thod Room Air 12/26/24 12:57 MDM - Extremity (Nontraumatic) Medical Decision Making X-ray unremarkable after x-ray of left shoulder did attempt range of motion patient has relatively good range of motion but does have a mild impingement sign. There is no deformity. Strength is still normal. Will discharge patient home with anti-inflammatories follow-up with primary care if not improving may need referral for PT or advanced imaging. Medical Records I reviewed the patient's medical records. Lab Data I reviewed the patient's lab results. Radiology Impressions Shoulder X-Ray 12/26/24 12:55 IMPRESSION: No acute findings. All radiology interpretation(s) finalized by discharge Discharge Plan Discharge Patient Disposition: Home Clinical Impression: Sprain of shoulder, left Condition: Stable Prescriptions: New diclofenac sodium 75 mg tablet,delayed release (DR/EC) 75 mg PO Q12H PRN (Reason: pain) Qty: 20 0RF No Action ascorbic acid (vitamin C) 250 mg tablet 250 mg PO DAILY gabapentin 300 mg capsule 600 mg PO BID lisinopril 5 mg tablet 2.5 mg PO QAM levothyroxine 125 mcg tablet 125 mcg PO DAILY Ozempic 2 mg/dose (8 mg/3 mL) pen injector SUBCUT ropinirole 0.5 mg tablet 0.5 mg PO DAILY duloxetine 60 mg capsule,delayed release(DR/EC) 60 mg PO BID Qty: 180 1RF Rx Instructions: Take one capsule by mouth twice daily Hair,Skin and Nails 1 mg iron-66.7 mcg-1,000 mcg Tablet 1 tab PO DAILY Discharge Orders: Discharge ED (Routine); Ordered 12/26/24 Ordered By: Dave Marie Referrals: Rosi Hernandez DO [Primary Care Provider, PICKING SUPERVISOR] Patient Instructions: Opioid Safety, Pain Management, Patient Portal & Shar Instructions Activity Restrictions/Additional Instructions: Thank you for choosing [facility] for your healthcare needs today. It is very important that you follow up as instructed or that you return to the Emergency Department should you have concerns or if your condition changes or worsens in any way. Emergency department visits are focused on emergent conditions, in some cases you may require further evaluation on an outpatient basis. You were seen emergency room after a fall x-ray does not show any signs of dislocation or fracture in the left shoulder. Recommend a sling for the next couple days for comfort you can apply ice or heat as needed. You are given just diclofenac to use as needed at home if it does not begin to improve within a few days follow-up with your primary care doctor. (Please note that included in your discharge packet is information concerning opioid safety and pain management. This information is given to all patients were discharged from the ER regardless of their discharge diagnosis or the medicines they usually take or are prescribed.) Print Language: Maori Coding Level of Care Code ED Automobile Relocation Engineer for Anette Raygoza
[2024-12-26] MEDS: HYDROcodone-acetaminophen 5-325 mg Tablet 1 TAB PO (13:31)
[2024-12-26 13:43] VITALS: BP 146/60; PULSE 87; O2SAT 97
== END 2024-12-26 13:40 | disposition home or self-care (01) ==
PROVIDERS: Emergency Provider Family Medicine; PCP Family Medicine
DX: S43.402A Unspecified sprain of left shoulder joint, initial encounter (principal); F17.210 Nicotine dependence, cigarettes, uncomplicated; W01.0XXA Fall on same level from slipping, tripping and stumbling without subsequent striking against object, initial encounter
CPT/HCPCS: 73030; 99283; J9999